=== PATIENT | male | born 1940 | race Caucasian/White ===

== ENCOUNTER → 2016-07-26 | Outpatient (CLI) | payer OTHER ==
--- NOTE | 2016-07-26 15:18 | RAD ---
HISTORY: Nontraumatic right hip pain Study: Right hip two views, AP pelvis Comparison: None Findings: A single frontal view of the pelvis demonstrates the pelvic ring to be intact. No evidence for acut e cortical disruption or dislocation of the hip can be observed. Frog leg views of the hip fails to demonstrate evidence for fracture or significant joint abnormality. Impression: 1. Negative exam. Reported By:
--- NOTE | 2016-07-26 15:31 | RAD ---
HISTORY: Back and right hip pain, nontraumatic Study: AP and lateral lumbar spine Comparison: None Findings: The alignment is normal. The vertebral bodies are of average height. The disc spaces are preserved. The pedicles are intact. The SI joints are normal. Moderate mid lumbar anterior spondylosis is prese nt. IMPRESSION: Moderate spondylosis Reported By:
== END ==
LOC: RAD 13:36
PROVIDERS: ATTEND Internal Medicine
DX: M51.36 Other intervertebral disc degeneration, lumbar region (principal); M16.11 Unilateral primary osteoarthritis, right hip
CPT/HCPCS: 72100; 73501